=== PATIENT | male | born 1950 | race African-American/Black ===

== ENCOUNTER 2019-08-21 06:22 | Emergency (ER) | payer OTHER ==
[~2019-08-21] VITALS: Ht 172.7 cm; Wt 100.0 kg
[2019-08-21 07:25] LABS: HEMATOCRIT. 30.4 % (42.0-52.0); HEMOGLOBIN. 10.2 g/dL (14.0-18.0); MEAN CORPUSCULAR HEMOGLOBIN 28.8 pg (28.0-32.0); MEAN CORPUSCULAR VOLUME 85.8 fL (80.0-94.0); MEAN PLATELET VOLUME 8.1 fl (7.4-10.4); PLATELET 236 x1000/uL (130-400); RED BLOOD CELL COUNT 3.54 mill/uL (4.7-6.1); RED CELL DISTRIBUTION WIDTH 15.5 % (11.6-14.6)
[2019-08-21 07:32] LABS: CHLORIDE 103 mEq/L (98-107); PROTHROMBIN TIME 10.6 sec (9.6-11.0)
[2019-08-21] MEDS ORDERED: ACETAMINOPHEN 325MG TABLET PO SCH (08:03)
[2019-08-21] MEDS ORDERED: SODIUM CHLORIDE 0.9% 1,000 ML IV SCH (08:03)
[2019-08-21 08:08] LABS: PLATELET ESTIMATE NORMAL
[2019-08-21] MEDS ORDERED: POTASSIUM CHLORIDE 20MEQ TABLET SR PO ONE (09:45)
[2019-08-21 10:44] LABS: CLARITY URINE CLEAR (CLEAR); COLOR URINE YELLOW (YELLOW); KETONES URINE NEGATIVE (NEGATIVE); LEUKOCYTE ESTERASE URINE NEGATIVE (NEGATIVE); NITRITE URINE NEGATIVE (NEGATIVE); OCCULT BLOOD URINE NEGATIVE (NEGATIVE); PH URINE 5.5 (4.5-8.0); PROTEIN URINE TRACE (NEGATIVE); SPECIFIC GRAVITY URINE 1.013 (1.005-1.030)
[2019-08-21 11:13] VITALS: BP 142/76
== END 2019-08-21 11:15 | disposition short-term general hospital (02) ==
LOC: ER 06:22 → CANBEDREQ 10:55 → ER 11:15
DX: S72.091A Other fracture of head and neck of right femur, initial encounter for closed fracture (principal); W18.39XA Other fall on same level, initial encounter; Y93.89 Activity, other specified; Y92.89 Other specified places as the place of occurrence of the external cause; Y99.8 Other external cause status; R55 Syncope and collapse; E87.6 Hypokalemia; D64.9 Anemia, unspecified; N28.9 Disorder of kidney and ureter, unspecified; J45.909 Unspecified asthma, uncomplicated; E11.9 Type 2 diabetes mellitus without complications; I10 Essential (primary) hypertension
CPT/HCPCS: 36415; 71045; 73502; 73560; 80053; 81003; 82962; 83880; 84484; 85025; 93005; 96360; 99285

== ENCOUNTER 2019-09-03 19:19 | Inpatient (IN) | payer OTHER ==
[~2019-09-03] VITALS: Ht 188 cm; Wt 97.6 kg
[2019-09-03] MEDS ORDERED: METHYLPREDNISOLONE SOD SUCC 125 MG/2 ML VIAL IV STA (19:21)
[2019-09-03] MEDS ORDERED: IPRATROPIUM BROMIDE (0.02%) 0.5MG/2.5ML NEB HHN STA (19:21)
[2019-09-03] MEDS ORDERED: ALBUTEROL (0.083%) 2.5MG/3ML NEB HHN STA (19:21)
[2019-09-03 20:15] LABS: HEMATOCRIT. 25.5 % (42.0-52.0); HEMOGLOBIN. 8.3 g/dL (14.0-18.0); MEAN CORPUSCULAR HEMOGLOBIN 28.1 pg (28.0-32.0); MEAN PLATELET VOLUME 7.9 fl (7.4-10.4); PLATELET 500 x1000/uL (130-400); RED BLOOD CELL COUNT 2.96 mill/uL (4.7-6.1); RED CELL DISTRIBUTION WIDTH 15.3 % (11.6-14.6)
[2019-09-03 20:19] LABS: CHLORIDE 102 mEq/L (98-107)
[2019-09-03 21:01] LABS: PLATELET ESTIMATE INCREASED
[2019-09-04] VITALS (26 sets, daily range): BP systolic 100–144; BP diastolic 37–108
[2019-09-04 01:55] LABS: BG BASE EXCESS -3.7 mmol/L (-2.0-2.0); BG BILEVEL POS AIRWAY PRESSURE 15/5; BG CARBOXYHEMOGLOBIN 0.3 % (0.5-1.5); BG DEOXYHEMOGLOBIN 0.9 % (0.0-5.0); BG FRACTION INSPIRED OXYGEN 60; BG HCO3 ACT 21.3 mmol/L (22.0-26.0); BG METHEMOGLOBIN 0.3 % (0.0-1.5); BG OXYGEN SATURATION 99.1 % (92.0-98.5); BG OXYHEMOGLOBIN 98.5 % (94.0-97.0); BG PCO2 38.1 mmHg (35.0-45.0); BG PH 7.365 (7.350-7.450); BG PO2 168.2 mmHg (75.0-100.0); BG SAMPLE SITE RIGHT RADIAL; BG TOTAL HEMOGLOBIN 8.7 g/dL (12.0-18.0); BG VENT MODE MASK - BIPAP; BG VENT RATE 16 set
[2019-09-04 06:57] LABS: BG BILEVEL POS AIRWAY PRESSURE 15/5; BG CARBOXYHEMOGLOBIN 0.3 % (0.5-1.5); BG DEOXYHEMOGLOBIN 0.8 % (0.0-5.0); BG FRACTION INSPIRED OXYGEN 60; BG HCO3 ACT 21.2 mmol/L (22.0-26.0); BG METHEMOGLOBIN 0.5 % (0.0-1.5); BG OXYGEN SATURATION 99.2 % (92.0-98.5); BG OXYHEMOGLOBIN 98.4 % (94.0-97.0); BG PCO2 39.1 mmHg (35.0-45.0); BG PH 7.352 (7.350-7.450); BG PO2 192.8 mmHg (75.0-100.0); BG SAMPLE SITE RIGHT BRACHIAL; BG TOTAL HEMOGLOBIN 8.7 g/dL (12.0-18.0); BG VENT MODE MASK - BIPAP; BG VENT RATE 16 set
[2019-09-04] MEDS: ENOXAPARIN 40MG/0.4ML SYR SUBCUT SCH (09:13)
[2019-09-04] MEDS: METHYLPREDNISOLONE SOD SUCC 40 MG/ML VIAL IV SCH ×3 (09:14→22:34)
[2019-09-04 10:38] LABS: HEMATOCRIT. 25.1 % (42.0-52.0); HEMOGLOBIN. 8.3 g/dL (14.0-18.0); MEAN CORPUSCULAR HEMOGLOBIN 28.2 pg (28.0-32.0); MEAN CORPUSCULAR VOLUME 85.7 fL (80.0-94.0); MEAN PLATELET VOLUME 7.7 fl (7.4-10.4); PLATELET 521 x1000/uL (130-400); RED BLOOD CELL COUNT 2.93 mill/uL (4.7-6.1); RED CELL DISTRIBUTION WIDTH 15.5 % (11.6-14.6)
[2019-09-04 10:45] LABS: INR 1.1; PROTHROMBIN TIME 11.8 sec (9.6-11.0)
[2019-09-04 10:49] LABS: CHLORIDE 101 mEq/L (98-107)
[2019-09-04] MEDS ORDERED: ALBUTEROL (0.083%) 2.5MG/3ML NEB HHN SCH (11:15)
[2019-09-04 11:19] LABS: PLATELET ESTIMATE INCREASED
[2019-09-04] MEDS: ALBUTEROL 6.7GM HFA INHALER ORI SCH (12:00)
[2019-09-04] MEDS ORDERED: LOSARTAN POTASSIUM 50 MG TABLET PO SCH (12:00)
[2019-09-04] MEDS ORDERED: SODIUM POLYSTYRENE SULFONATE 15 G/60 ML BOT PO SCH (12:00)
[2019-09-04] MEDS ORDERED: ALBUTEROL 6.7GM HFA INHALER INH SCH (12:00)
[2019-09-04] MEDS ORDERED: ALBUTEROL 6.7GM HFA INHALER INH PRN (12:00)
[2019-09-04] MEDS: GUAIFENESIN 600MG ER TABLET PO SCH ×2 (12:16→22:34)
[2019-09-04] MEDS: AZITHROMYCIN 500 MG in DEXT 5% WATER 250 ML IV SCH (13:44)
[2019-09-04] MEDS: LINAGLIPTIN 5MG TABLET PO SCH (14:24)
[2019-09-04] MEDS ORDERED: DEXTROSE 50% WATER 50ML SYRINGE IV PRN ×2 (15:45→23:45)
[2019-09-04] MEDS: BLOOD SUGAR DIAGNOSTIC STRIP TEST SCH ×3 (16:44→22:35)
[2019-09-04] MEDS: GLIPIZIDE 10MG TABLET PO SCH ×2 (16:44→17:53)
[2019-09-04] MEDS: MONTELUKAST SODIUM 10MG TABLET PO SCH (16:44)
[2019-09-04 23:18] LABS: CLARITY URINE CLEAR (CLEAR); COLOR URINE YELLOW (YELLOW); KETONES URINE 1+ (NEGATIVE); LEUKOCYTE ESTERASE URINE NEGATIVE (NEGATIVE); NITRITE URINE NEGATIVE (NEGATIVE); OCCULT BLOOD URINE NEGATIVE (NEGATIVE); PROTEIN URINE NEGATIVE (NEGATIVE)
[2019-09-04 23:28] LABS: *AMPHETAMINES SCREEN URINE NEGATIVE (NEGATIVE); CANNABINOID URINE SCREEN NEGATIVE (NEGATIVE)
[2019-09-04 23:29] LABS: *BARBITURATES SCREEN URINE NEGATIVE (NEGATIVE); *BENZODIAZEPINES SCREEN URINE NEGATIVE (NEGATIVE); *COCAINE SCREEN URINE NEGATIVE (NEGATIVE); METHADONE URINE SCREEN NEGATIVE (NEGATIVE)
[2019-09-04 23:31] LABS: OPIATES URINE SCREEN NEGATIVE (NEGATIVE); PHENCYCLIDINE URINE SCREEN NEGATIVE (NEGATIVE)
[2019-09-05] VITALS: BP 122/37
[2019-09-05] MEDS: INSULIN LISPRO 100 UNITS/ML SUBCUT SCH ×4 (00:11→17:40)
[2019-09-05 04:00] VITALS: BP 148/90
[2019-09-05] MEDS: METHYLPREDNISOLONE SOD SUCC 40 MG/ML VIAL IV SCH ×2 (05:35→13:50)
[2019-09-05] MEDS: BLOOD SUGAR DIAGNOSTIC STRIP TEST SCH ×3 (06:17→17:32)
[2019-09-05] MEDS: ENOXAPARIN 40MG/0.4ML SYR SUBCUT SCH (08:35)
[2019-09-05] MEDS: GLIPIZIDE 10MG TABLET PO SCH ×2 (08:35→17:39)
[2019-09-05] MEDS: LINAGLIPTIN 5MG TABLET PO SCH (08:36)
[2019-09-05] MEDS: GUAIFENESIN 600MG ER TABLET PO SCH (08:36)
[2019-09-05] MEDS ORDERED: LOSARTAN POTASSIUM 50 MG TABLET PO SCH (09:00)
[2019-09-05] MEDS ORDERED: AMLODIPINE 5MG TABLET PO SCH (09:00)
[2019-09-05] MEDS: ALBUTEROL 6.7GM HFA INHALER ORI SCH ×3 (10:20→15:51)
[2019-09-05 10:51] LABS: BG BASE EXCESS -1.4 mmol/L (-2.0-2.0); BG CARBOXYHEMOGLOBIN 0.3 % (0.5-1.5); BG DEOXYHEMOGLOBIN 1.1 % (0.0-5.0); BG FRACTION INSPIRED OXYGEN 40; BG HCO3 ACT 23.4 mmol/L (22.0-26.0); BG OXYGEN SATURATION 98.9 % (92.0-98.5); BG OXYHEMOGLOBIN 98.6 % (94.0-97.0); BG PCO2 39.4 mmHg (35.0-45.0); BG PH 7.391 (7.350-7.450); BG PO2 142.8 mmHg (75.0-100.0); BG SAMPLE SITE RIGHT RADIAL; BG TOTAL HEMOGLOBIN 8.1 g/dL (12.0-18.0); BG VENT MODE NASAL CANNULA
[2019-09-05] MEDS ORDERED: LIDOCAINE HCL/PF 1% 2ML VIAL ONE (11:59)
[2019-09-05 12:00] VITALS: BP 124/60
[2019-09-05] MEDS: AZITHROMYCIN 500 MG in DEXT 5% WATER 250 ML IV SCH (13:50)
[2019-09-05 16:00] VITALS: BP 110/58
[2019-09-05] MEDS ORDERED: PREDNISONE 20MG TABLET PO SCH (17:00)
[2019-09-05] MEDS: MONTELUKAST SODIUM 10MG TABLET PO SCH (17:39)
[2019-09-05 18:36] VITALS: BP 110/50
== END 2019-09-05 21:05 | disposition short-term general hospital (02) | DRG 871 ==
LOC: ER 19:35 → MICUSO 23:17 → EDBEDREQTM 23:18 → EDBEDREQSVC 23:18 → ENRESERV 09-04 02:56 → 7WST 09-04 17:35 → 8WST 09-05 13:28
PROVIDERS: ADMIT Family Medicine; ATTEND Family Medicine
PROC: 5A09357 Assistance with Respiratory Ventilation, Less than 24 Consecutive Hours, Continuous Positive Airway Pressure (ICD-10-PCS; principal; 2019-09-03)
DX: A41.50 Gram-negative sepsis, unspecified (principal); J96.01 Acute respiratory failure with hypoxia; N17.0 Acute kidney failure with tubular necrosis; E43 Unspecified severe protein-calorie malnutrition; J69.0 Pneumonitis due to inhalation of food and vomit; J44.1 Chronic obstructive pulmonary disease with (acute) exacerbation; J45.41 Moderate persistent asthma with (acute) exacerbation; D64.9 Anemia, unspecified; E87.5 Hyperkalemia; I10 Essential (primary) hypertension; E11.9 Type 2 diabetes mellitus without complications; E78.5 Hyperlipidemia, unspecified; Z96.641 Presence of right artificial hip joint; E78.00 Pure hypercholesterolemia, unspecified; Z20.828 Contact with and (suspected) exposure to other viral communicable diseases; Z79.82 Long term (current) use of aspirin; Z79.899 Other long term (current) drug therapy; Z82.5 Family history of asthma and other chronic lower respiratory diseases; Z86.718 Personal history of other venous thrombosis and embolism; Z91.013 Allergy to seafood; Z79.84 Long term (current) use of oral hypoglycemic drugs; Z68.27 Body mass index [BMI] 27.0-27.9, adult
CPT/HCPCS: 36415; 36600; 71045; 78582; 80048; 80053; 80305; 81003; 82270; 82375; 82805; 82962; 83880; 84484; 85025; 85379; 87070; 87077; 87186; 93005; 93306; 93970; 94640; 99291; A9558; J0456; J1650; J1815; J2920; J2930; J3490; J7060; J7512; U0003-CS